=== PATIENT | female | born 2005 | race Two or more races ===

== ENCOUNTER 2025-04-09 01:55 | Inpatient (IN) | payer MEDICAID ==
[~2025-04-09] VITALS: Ht 165.1 cm; Wt 124.5 kg
[2025-04-09] MEDS ORDERED: loperamide 2mg capsule PO PRN (11:40)
[2025-04-09] MEDS ORDERED: mag hydrox/Alum hydrox/simeth 30ml oral suspension PO PRN (11:40)
[2025-04-09] MEDS ORDERED: magnesium hydroxide 30ml (MOM) UD suspension PO PRN (11:40)
[2025-04-09 11:41] VITALS: BP 136/83; PULSE 95; RESP 16; TEMP 97.3; O2SAT 98
[2025-04-09 11:45] VITALS: BP 136/83; PULSE 95; RESP 16; TEMP 97.3; O2SAT 98
[2025-04-09 15:45] VITALS: RESP 16; O2SAT 98
[2025-04-09] MEDS ORDERED: TRAZ-256 PO (15:47)
[2025-04-09] MEDS ORDERED: GABA-530 PO (15:47)
[2025-04-09] MEDS ORDERED: ATOM25CA6 PO (15:47)
[2025-04-09] MEDS ORDERED: MULT-1085 PO (15:47)
[2025-04-09] MEDS ORDERED: PRAZ2CAP2 PO (15:47)
[2025-04-09] MEDS ORDERED: DIVA250T15 PO (15:47)
[2025-04-09] MEDS ORDERED: [UNRECOGNIZED DRUG - CODE] PO (15:47)
[2025-04-09] MEDS ORDERED: BUSP5TAB3 PO (15:47)
[2025-04-09] MEDS ORDERED: ARIP5TAB12 PO (15:47)
[2025-04-09] MEDS ORDERED: HYDR-3927 PO ×2 (15:47)
[2025-04-09] MEDS ORDERED: METF-436 PO (15:47)
[2025-04-09] MEDS ORDERED: FLUT9.9S16 BOTHNARES (15:47)
[2025-04-09] MEDS ORDERED: POLY119P2 PO (16:06)
[2025-04-09] MEDS ORDERED: LORA10TA7 PO (16:06)
[2025-04-09] MEDS: multivitamins, therapeutics tablet PO SCH (18:01)
[2025-04-09 19:00] VITALS: RESP 16; O2SAT 97
[2025-04-09 20:00] VITALS: BP 121/79; PULSE 99; RESP 16; TEMP 97.2; O2SAT 97
[2025-04-09 20:33] VITALS: BP 121/79; PULSE 99; RESP 16; TEMP 97.2; O2SAT 97
[2025-04-09] MEDS: divalproex 250mg tablet, delayed-release PO SCH (21:28)
[2025-04-09] MEDS: busPIRone 15mg tablet PO SCH (21:29)
[2025-04-09] MEDS: fluvoxamine 25 MG tablet PO SCH (21:42)
[2025-04-10 07:00] VITALS: BP 122/79; PULSE 76; RESP 16; TEMP 97.8; O2SAT 99
[2025-04-10] MEDS: polyethylene glycol 3350 17gm powd pack PO SCH (07:32)
[2025-04-10] MEDS: atomoxetine 25mg capsule PO SCH (07:36)
[2025-04-10] MEDS: fluticasone nasal spray 16GM bottle NS SCH (07:37)
[2025-04-10 08:00] VITALS: RESP 16; O2SAT 99
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
--- NOTE | 2025-04-10 16:16 | HISTORY AND PHYSICAL ---
History & Physical Providers to CC ~ History of Present Illness Reason for Admit\Complaint: Suicidal ideation History of Present Illness Patient is a year old transgender, who was brought to [facility] ED for suicidal ideation and plans they would not disclose. They stated that they did not feel safe at home and is requesting to be on testosterone which she states their father can bring. Per psych notes Per crisis cooking instructor-- Patient stated they were having CAH telling them to kill themselves. They are also seeing ' animals.' Over the past month have been decompensating and have been having significant SI since Friday with a plan to cut themselves. They do at times have thoughts of harming others but has absolutely no intent. They believe they are not safe at home. Patient has no acute medical problems. Denies having any fever chills nausea vomiting abdominal pain chest pain dysuria frequency urgency hematuria melena or bright red blood per rectum. Allergies: Coded Allergies: almond (Verified Allergy, Unknown, 04/09/25) milk (Verified Allergy, Unknown, 04/09/25) ALL Dairy wheat (Verified Allergy, Unknown, 04/09/25) Uncoded Allergies: Shellfish (Allergy, Severe, Anaphylactic reaction, 04/09/25) Severe Home Medications Home Medications Active Reported Miralax (Polyethylene Glycol 3350) 17 Gram/Dose Powder 17 Gm PO DAILY dissolve in water Loratadine 10 Mg Tablet 10 Mg PO DAILY Flonase Sensimist (Fluticasone Furoate) 27.5 Mcg/Actuation [place].susp 1 Puffs BOTHNARES DAILY Trazodone HCl 100 Mg Tablet 2 Tab PO HS Prazosin Hcl 2 Mg Capsule 4 Mg PO HS Fluvoxamine Maleate 100 Mg Tablet 1 Tab PO HS Multi Vitamin Daily (Multivitamin) 1 Each Tablet 1 Tab PO QDD Depakote (Divalproex Sodium) 250 Mg Tablet.dr 1 Tab PO BID Hydroxyzine Pamoate 25 Mg Capsule 3 Cap PO HS Hydroxyzine Pamoate 25 Mg Capsule 1 Cap PO QAM Gabapentin 100 Mg Capsule 3 Cap PO TID 30 Days Buspar* (Buspirone HCl) 5 Mg Tablet 1.5 Tab PO BID Metformin Hcl 500 Mg Tablet 500 Mg PO BIDBD Atomoxetine HCl 25 Mg Capsule 1 Cap PO QAM Abilify* (Aripiprazole) 5 Mg Tablet 25 Mg PO DAILY Past Medical History Past Medical History HTN Past Surgical History Surgical History Comment None Past Social History Social History Comment Does not smoke drink or do any drugs Health Maintenance Health Maintenance States they are not current on her immunizations. ROS ROS All other systems are reviewed and are negative except as mentioned in HPI Exam Vitals: Vital Signs Date Time Temp Pulse Resp B/P (MAP) Pulse Ox O2 Delivery O2 Flow Rate FiO2 04/10/25 08:00 16 99 Room Air 04/10/25 07:00 97.8 76 122/79 (93) General: Awake alert cooperative in no acute distress HEENT: Normocephalic atraumatic pupils round reactive to light and accommodation, extraocular movements intact, sclera anicteric, conjunctiva pinkish, moist oral mucosa, no rash or ulcers. Neck: Supple, no JVD, trachea midline, no lymphadenopathy. Chest: Clear to auscultation, no wheezes crackles or rhonchi. Cardiovascular: Regular rate rhythm, no murmur gallop or rub. Abdomen: Soft nontender, no organomegaly. Extremities: No cyanosis clubbing or edema. Central Nervous System: Nonfocal. Moves all four extremities. Ambulatory without assistance. Musculoskeletal: No joint swelling or deformities Skin: No rash or ulcers. Additional Plan 20 Year transgender female in transition to a male , with history of Bipolar disorder, schizoaffective disorder, ADHD admitted at [facility] with suicidal ideation. Bipolar disorder, schizoaffective disorder, ADHD: Continue treat per psych recommendations. Transgender -requesting testosterone shots . I will sign off. Please contact the hospitalist team for any change in patient's condition . Hospitalist team will continue to follow the patient per Protocol Date of Service: Apr 10, 2025 Billing Provider: ADELAIDE ABDI MD Common Visit Codes: [id number] INP/OBS CARE (LOW) ADELAIDE ABDI MD Apr 10, 2025 16:16
[2025-04-10 19:00] VITALS: RESP 16; O2SAT 100
[2025-04-10 20:00] VITALS: BP 113/80; PULSE 91; RESP 16; TEMP 97.1; O2SAT 100
[2025-04-10] MEDS: divalproex sodium 500mg tablet.DR PO SCH (20:30)
[2025-04-11 07:33] VITALS: BP 122/78; PULSE 82; RESP 14; TEMP 97.3; O2SAT 99
[2025-04-11 08:00] VITALS: RESP 14; O2SAT 99
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
--- NOTE | 2025-04-11 17:06 | ELECTROCARDIOGRAPH REPORT ---
[facility] Test Date: 2025-04-11 Test Time: 17:03:22 Pat Name: MAX SETHI Department: [facility] Patient ID: [id number] Room: 329 A Gender: F Head Teller: RAY : 2005 Requested By: SHARON STODDARD Order Number: [id number] Reading MD: Dr. CHELITA Waters Measurements Intervals [place] Rate: 74 P: 43 MS: 154 QRS: 47 QRSD: 89 T: 30 QT: 368 QTc: 409 Interpretive Statements Sinus rhythm Electronically Signed On 04-11-2025 17:34:[address] CHELITA Waters Please click the below link to view image of tracing.
[2025-04-11 19:00] VITALS: RESP 20; O2SAT 99
[2025-04-11 20:00] VITALS: BP 130/80; PULSE 99; RESP 20; TEMP 98.3; O2SAT 99
[2025-04-11] MEDS: fluvoxamine 25 MG tablet PO SCH (20:51)
[2025-04-12 07:00] VITALS: RESP 15; O2SAT 84
[2025-04-12 08:00] VITALS: BP 109/68; PULSE 84; RESP 15; TEMP 98; O2SAT 96
[2025-04-12 08:02] LABS: MEAN PLATELET VOLUME 9.5 FL (7.4-10.4); RED CELL DISTRIBUTION WIDTH 15.4 % (11.5-14.5)
[2025-04-12 08:17] LABS: CREATININE 0.86 MG/DL (0.40-0.90); TOTAL CARBON DIOXIDE 29.7 MMOL/L (24-32); eCRCL 94 ML/MIN; eGFR 84 ML/MIN
[2025-04-12] MEDS ORDERED: NYSTATIN CREAM - 30GM TUBE TP PRN (08:40)
--- NOTE | 2025-04-12 15:42 | PROGRESS NOTE ---
Daily Progress Note Providers to CC ~ Antibiotic Timeout Antibiotic Ordered?: No Subjective No complaints. Patient requesting nystatin powder for her groin/vaginal area. Objective Vital Signs Date Time Temp Pulse Resp B/P (MAP) Pulse Ox O2 Delivery O2 Flow Rate FiO2 04/12/25 08:00 98.0 84 15 109/68 (82) 96 Room Air Result Diagram: 04/12/25 0712 04/12/25 0712 Awake alert cooperative in no acute distress. Ambulating without assistance HEENT normocephalic atraumatic extraocular movements are intact Neck supple, no JVD Chest: Clear to auscultation, no wheezes crackles rhonchi Heart: Regular rate rhythm, no murmur or gallop rub Abdomen is soft nontender no organomegaly Extremities no cyanosis clubbing or edema Neuro exam nonfocal. Other Results Medications reviewed Problem\Assessment\Plan 20-year-old transgender female to male in transition, has been admitted at [facility] with suicide ideation #bipolar disorder, schizoaffective disorder, ADHD: Continue treat per psych recommendations # other: Patient requesting nystatin powder which I approved with the RN Patient has no acute medical issues. I will sign off. Hospitalist team will continue follow the patient per policy/protocol. Please contact the hospitalist team for any change in patient's medical condition. Date of Service: Apr 12, 2025 Billing Provider: ADELAIDE ABDI MD Common Visit Codes: [id number] INP/OBS CARE(LOW) ADELAIDE ABDI MD Apr 12, 2025 15:42
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
[2025-04-12 19:00] VITALS: RESP 18; O2SAT 96
[2025-04-12 20:00] VITALS: BP 120/90; PULSE 95; RESP 18; TEMP 96.9; O2SAT 96
[2025-04-12 20:30] VITALS: PULSE 80
[2025-04-13 07:00] VITALS: BP 122/76; PULSE 93; RESP 16; TEMP 97.8; O2SAT 99
[2025-04-13] MEDS: fluvoxamine 25 MG tablet PO SCH (08:28)
[2025-04-13 19:00] VITALS: RESP 20; O2SAT 98
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
[2025-04-13 19:46] VITALS: BP 132/78; PULSE 105; RESP 20; TEMP 96.7; O2SAT 98
[2025-04-13] MEDS: polyethylene glycol 3350 17gm powd pack PO SCH (22:08)
[2025-04-14 07:00] VITALS: BP 117/66; PULSE 77; RESP 18; TEMP 97.6; O2SAT 97
[2025-04-14 19:00] VITALS: RESP 14; O2SAT 97
--- NOTE | 2025-04-14 19:01 | PROGRESS NOTE- Residence ---
Progress Note - Resident Providers to CC Resident Creating Document: CHASE TEJEDA RES ~ Central Line/PICC still needed: No Fontaine-Non Protocol Fontaine Indications Met/Not Met: F/C Indications Not Met Antibiotic Timeout Antibiotic Ordered?: No Subjective No acute medical complaints. But they are requesting for the testosterone shot as well as some protein shakes as they think they are not getting enough nutrition here. Also requesting for hemorrhoidal cream. Objective Vital Signs Date Time Temp Pulse Resp B/P (MAP) Pulse Ox O2 Delivery O2 Flow Rate FiO2 04/14/25 07:00 18 97 Room Air 04/14/25 07:00 97.6 77 117/66 (83) Result Diagram: 04/12/25 0712 04/12/25 07 General: Awake and Alert, no acute distress. HEENT: Conjunctiva pink, Sclera clear, Mucus Membranes moist. Resp: Unlabored. Lungs clear to auscultation bilaterally. Heart: Regular Rate and rhythm, normal S1 and S2 without murmur, rub or gallop. Abdomen: Soft and non tender no organomegaly Extremities: No cyanosis,clubbing or edema. Skin: Warm and Dry. Assessment Assessment This is a 20-year-old transgender patient transitioning from female to male is currently being managed in the mental health unit for suicidal ideation in the setting of schizoaffective disorder, ADHD and bipolar disorder. Plan Plan Transgender: Transitioning from female to male Requesting testosterone injections as per home medication list Requested pharmacy to confirm home dosage and to restart medication External hemorrhoids: Ordered hemorrhoidal cream Bipolar disorder Schizoaffective disorder ADHD: Medications as per the [facility] Type 2 diabetic: Questionable On metformin 500 mg b.i.d. Insomnia: Chronic, anxiety induced Currently on trazodone, prazosin Also has hydroxyzine and Benadryl PRN Disposition: Continue management as per [facility]. Hospitalist team will continue to follow Chase Tejeda PGY3, Internal medicine resident Patient was seen, examined and discussed with the attending MD, Dr. Marx Date of Service: Apr 14, 2025 Billing Provider: ROMERO MARX MD Common Visit Codes: [id number] INP/OBS CARE(MOD) CHASE TEJEDA RES Apr 14, 2025 19:01 ROMERO MARX MD Apr 15, 2025 06:46
[2025-04-14] MEDS ORDERED: TEST100A SUBCUT (19:25)
[2025-04-14 20:00] VITALS: BP 124/75; PULSE 103; RESP 16; TEMP 98.3; O2SAT 97
[2025-04-15 07:00] VITALS: BP 125/85; PULSE 72; RESP 14; TEMP 98.2; O2SAT 98
[2025-04-15] MEDS: PHENYLEPH/MIN OIL/PETROLAT hemorrhoid oint 57GM tube RC PRN (08:04)
--- NOTE | 2025-04-15 08:06 | PROGRESS NOTE ---
Progress Note Dictate Providers to CC ~ Antibiotic Ordered?: No Objective Vitals Vital Signs Date Time Temp Pulse Resp B/P (MAP) Pulse Ox O2 Delivery O2 Flow Rate FiO2 04/14/25 20:00 98.3 103 16 124/75 (91) 97 Room Air Lab Results: 04/12/25 0712 04/12/25 0712 Psychiatrist's Progress Note Date of Service: Apr 14, 2025 CODING VISIT-PSYCHIATRY Date of Service: Apr 14, 2025 Billing Provider: SHARON STODDARD DNP Psych Common Visit Codes: [id number] INP/OBS CARE(Mod) SHARON STODDARD DNP Apr 15, 2025 08:06
[2025-04-15] MEDS ORDERED: TESTOSTERONE CYPIONATE 200 MG/ML VIAL IM SCH (08:30)
[2025-04-15] MEDS: TESTOSTERONE CYPIONATE 200 MG/ML VIAL IM SCH (09:58)
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
[2025-04-15 19:00] VITALS: RESP 16; O2SAT 100
[2025-04-15 20:00] VITALS: BP 142/93; PULSE 87; RESP 16; TEMP 98.2; O2SAT 100
[2025-04-16 07:00] VITALS: RESP 15; O2SAT 84
[2025-04-16 08:00] VITALS: BP 115/74; PULSE 95; RESP 15; TEMP 97.2; O2SAT 97
--- NOTE | 2025-04-16 08:22 | PROGRESS NOTE ---
Daily Progress Note Providers to CC ~ Objective Vital Signs Date Time Temp Pulse Resp B/P (MAP) Pulse Ox O2 Delivery O2 Flow Rate FiO2 04/15/25 20:00 98.2 87 16 142/93 (109) 100 Room Air Result Diagram: 04/12/25 0712 04/12/25 0712 Awake alert cooperative in no acute distress. Ambulating without assistance HEENT normocephalic atraumatic extraocular movements are intact Neck supple, no JVD Chest: Clear to auscultation, no wheezes crackles rhonchi Heart: Regular rate rhythm, no murmur or gallop rub Abdomen is soft nontender no organomegaly Extremities no cyanosis clubbing or edema Neuro exam nonfocal. Problem\Assessment\Plan 20-year-old transgender female to male in transition, has been admitted at [facility] with suicide ideation #bipolar disorder, schizoaffective disorder, ADHD: Continue treat per psych recommendations # other: Patient requesting nystatin powder which I approved with the RN Patient has no acute medical issues. I will sign off. Hospitalist team will continue follow the patient per policy/protocol. Please contact the hospitalist team for any change in patient's medical condition. ADELAIDE ABDI MD Apr 16, 2025 08:22
--- NOTE | 2025-04-16 09:36 | PROGRESS NOTE ---
Daily Progress Note Providers to CC ~ Antibiotic Timeout Antibiotic Ordered?: No Subjective Complains of a sore on left fifth toe Objective Vital Signs Date Time Temp Pulse Resp B/P (MAP) Pulse Ox O2 Delivery O2 Flow Rate FiO2 04/16/25 08:00 97.2 95 15 115/74 (88) 97 Room Air Result Diagram: 04/12/25 0712 04/12/25 0712 Awake alert cooperative in no acute distress. Ambulating without assistance HEENT normocephalic atraumatic extraocular movements are intact Neck supple, no JVD Chest: Clear to auscultation, no wheezes crackles rhonchi Heart: Regular rate rhythm, no murmur or gallop rub Abdomen is soft nontender no organomegaly Extremities no cyanosis clubbing or edema Neuro exam nonfocal. Skin: Sore on the left fifth toe with surrounding erythema Other Results Medications reviewed Problem\Assessment\Plan 20-year-old transgender female to male in transition, has been admitted at [facility] with suicide ideation #Bipolar disorder, schizoaffective disorder, ADHD: Continue treat per psych recommendations # Left toe cellulitis and ulcer: Start on PO Keflex Patient has no acute medical issues. I will sign off. Hospitalist team will continue follow the patient per policy/protocol. Please contact the hospitalist team for any change in patient's medical condition. Date of Service: Apr 16, 2025 Billing Provider: ADELAIDE ABDI MD Common Visit Codes: [id number] INP/OBS CARE(LOW) ADELAIDE ABDI MD Apr 16, 2025 09:36
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
[2025-04-16 19:00] VITALS: RESP 17; O2SAT 98
[2025-04-16 20:00] VITALS: BP 108/84; PULSE 70; RESP 17; TEMP 98.1; O2SAT 99
[2025-04-17 08:03] VITALS: RESP 16
[2025-04-17 08:23] VITALS: RESP 16
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
[2025-04-17 19:00] VITALS: RESP 16; O2SAT 99
[2025-04-17 20:00] VITALS: BP 116/77; PULSE 98; RESP 16; TEMP 97.1; O2SAT 99
[2025-04-17] MEDS: divalproex sod 125mg sprinkle cap PO SCH (21:08)
[2025-04-18 07:00] VITALS: BP 131/86; PULSE 68; RESP 16; TEMP 98; O2SAT 98
[2025-04-18 13:38] VITALS: RESP 16
--- NOTE | 2025-04-18 17:22 | PROGRESS NOTE- Residence ---
Progress Note - Resident Providers to CC Resident Creating Document: SULEMAN CASTRO RES ~ Antibiotic Timeout Antibiotic Ordered?: No Subjective No acute medical complaints. But they are requesting for the testosterone shot as well as some protein shakes as they think they are not getting enough nutrition here. Also requesting for hemorrhoidal cream. Objective Vital Signs Date Time Temp Pulse Resp B/P (MAP) Pulse Ox O2 Delivery O2 Flow Rate FiO2 04/18/25 13:38 16 Room Air 04/18/25 07:00 98.0 68 131/86 (101) 98 Assessment Assessment This is a 20-year-old transgender patient transitioning from female to male is currently being managed in the mental health unit for suicidal ideation in the setting of schizoaffective disorder, ADHD and bipolar disorder. Plan Plan Transgender: Transitioning from female to male Requesting testosterone injections as per home medication list Requested pharmacy to confirm home dosage and to restart medication Neuropathic pain. Shifted from gabapentin to pregabalin Increased the dose of pregabalin from 75-150 mg b.i.d. Bipolar disorder Schizoaffective disorder ADHD: Medications as per the [facility] Type 2 diabetic: Questionable On metformin 500 mg b.i.d. Insomnia: Chronic, anxiety induced Currently on trazodone, prazosin Also has hydroxyzine and Benadryl PRN Disposition: Continue management as per [facility]. Hospitalist team will continue to follow Suleman Castro PGY1, Internal medicine resident Patient was seen, examined and discussed with the attending MD, Dr. Chen Date of Service: Apr 18, 2025 Billing Provider: ROMERO CHEN MD Common Visit Codes: [id number] INP/OBS CARE(MOD) SULEMAN CASTRO RES Apr 18, 2025 17:22 ROMERO CHEN MD Apr 19, 2025 07:49
[2025-04-18 19:00] VITALS: RESP 20; O2SAT 98
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
[2025-04-18 20:00] VITALS: BP 137/83; PULSE 122; RESP 20; TEMP 97; O2SAT 98
[2025-04-19 06:57] VITALS: RESP 16
[2025-04-19] MEDS: lisdexamfetamine dimesylate 10mg capsule PO SCH (07:38)
[2025-04-19 07:48] VITALS: BP 131/85; PULSE 91; RESP 12; TEMP 98.4; O2SAT 99
[2025-04-19] MEDS ORDERED: HYDR-3686 PO (09:32)
[2025-04-19] MEDS ORDERED: PRAZ2CAP2 PO (09:32)
[2025-04-19] MEDS ORDERED: FLUV150C2 PO (09:32)
[2025-04-19] MEDS ORDERED: LISD10CA PO (09:32)
[2025-04-19] MEDS ORDERED: LYR75C PO (09:32)
[2025-04-19] MEDS ORDERED: CEPH-585 PO (09:32)
[2025-04-19] MEDS ORDERED: QUET25TA36 PO (09:32)
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
== END 2025-04-19 14:47 | disposition home or self-care (01) | DRG 756 ==
LOC: UNDOADMIN 11:07 → ADULT MH 11:07
PROVIDERS: ADMIT Psychiatry & Neurology Psychiatry; ATTEND Psychiatry & Neurology Psychiatry
PROC: GZ51ZZZ Individual Psychotherapy, Behavioral (ICD-10-PCS; principal; 2025-04-10)
PROC: GZHZZZZ Group Psychotherapy (ICD-10-PCS; 2025-04-10)
DX: F43.10 Post-traumatic stress disorder, unspecified (principal); F32.3 Major depressive disorder, single episode, severe with psychotic features; I10 Essential (primary) hypertension; R45.851 Suicidal ideations; F60.3 Borderline personality disorder; F84.0 Autistic disorder; F44.81 Dissociative identity disorder; F42.9 Obsessive-compulsive disorder, unspecified; G47.09 Other insomnia; F40.10 Social phobia, unspecified; F41.1 Generalized anxiety disorder; G89.29 Other chronic pain; M54.89 Other dorsalgia; F90.9 Attention-deficit hyperactivity disorder, unspecified type; Z91.0110 Allergy to milk products, unspecified; Z91.013 Allergy to seafood; Z91.018 Allergy to other foods; Z79.899 Other long term (current) drug therapy
CPT/HCPCS: 36415; 80053; 80164; 82248; 83036; 84443; 85025; 87081; 93005; 99285; Q0161; Q0177; Z7610